=== PATIENT | male | born 1995 | race Caucasian/White ===

== ENCOUNTER 2019-01-22 13:01 | Emergency (ER) | payer OTHER ==
[2019-01-22] MEDS ORDERED: NS 0.9% 1000 ML** 1,000 ML IV ONE (13:32)
[2019-01-22] MEDS ORDERED: Ondansetron INJ* 2 MG/ML VIAL IV ONE (13:32)
--- NOTE | 2019-01-22 14:38 | UC ---
Nausea/Vomiting/Diarrhea HPI - HPI Summary HPI Summary: Pt has been vomiting over the past 1-2 days which he attributes to smoking marijuan. He states he also used cocaine in the past 2 1/2 weeks and again one week ago. In the past, when he smoked marijuana, he would always develop excessive vomiting. He was seen in the [facility] twice yesterday but he states "They didn't do anything..gave me some fluids and nausea medicine and ativan which did nothing." - History of Current Complaint Chief Complaint: UCGeneralIllness Stated Complaint: VOMITING Time Seen by Provider: 01/22/19 13:24 Hx Obtained From: Patient Onset/Duration: Sudden Onset - After smoking marijuana Timing: Intermittent Episodes Lasting: - a few minutes Severity Initially: Moderate Severity Currently: Mild Pain Intensity: 8 Location: Diffuse - Diffuse abdominal soreness mostly from vomiting. Character: Dull Aggravating Factor(s): Other: - Vomiting Nausea/Vomiting Presence: Nauseated, Vomiting - Pt states he has vomitied 10 times in the past 24 hours. Nausea/Vomiting Duration: 12-24 hours Vomiting Characteristics: Retching Diarrhea Presence: No - Risk Factors Influenza Risk Factors: Negative Surgical Obstruction Risk Factor(s): Negative - Allergies/Home Medications Allergies/Adverse Reactions: Allergies Allergy/AdvReac Type Severity Reaction Status Date / Time No Known Allergies Allergy Verified 01/23/19 12:44 PMH/Surg Hx/FS Hx/Imm Hx Previously Healthy: Yes Psychological History: Anxiety - Surgical History Surgical History: Yes Surgery Procedure, Year, and Place: Left Shoulder Labrum Repair - Family History Known Family History: Positive: None - Social History Occupation: Student Lives: Dormitory/Roommates Alcohol Use: Weekly Substance Use Type: Cocaine, Marijuana Substance Use Comment - Amount & Last Used: Marijuana "every other day"; Cocaine "once a week maybe" Smoking Status (MU): Never Smoked Tobacco Review of Systems All Other Systems Reviewed And Are Negative: Yes Constitutional: Positive: Negative Skin: Positive: Negative Eyes: Positive: Negative ENT: Positive: Negative Respiratory: Positive: Negative Cardiovascular: Positive: Negative Gastrointestinal: Positive: Vomiting - Vomited 10 times in the past 24 hours, Abdominal discomfort associated with vomiting. No specific point tenderness, Nausea Genitourinary: Positive: Negative Motor: Positive: Negative Neurovascular: Positive: Negative Musculoskeletal: Positive: Negative Neurological: Positive: Negative Psychological: Positive: Negative Is Patient Immunocompromised?: No Physical Exam Triage Information Reviewed: Yes Appearance: Well-Appearing, No Pain Distress, Well-Nourished, Other: - Pacing in room with mild anxiety due to vomiting. Vital Signs: Initial Vital Signs Temp 98.9 F 01/22/19 13:11 Pulse 85 01/22/19 13:11 Resp 18 01/22/19 13:11 BP 160/95 01/22/19 13:11 Pulse Ox 100 01/22/19 13:11 Vital Signs Reviewed: Yes Eye Exam: Normal ENT Exam: Normal Neck exam: Normal Respiratory Exam: Normal Cardiovascular Exam: Normal Abdominal Exam: Normal Abdomen Description: Positive: Nontender - No specific point tenderness., No Organomegaly, Soft. Negative: Distended, Guarding, Hepatomegaly, Splenomegaly Bowel Sounds: Positive: Present Musculoskeletal Exam: Normal Neurological Exam: Normal Psychological Exam: Normal Skin Exam: Normal Re-Evaluation - Re-Evaluation First Eval Re-Evaluation Time: 15:25 Change: Improved - Pt feeling much better and has not had any more vomiting while here. His abdomen remians soft and non-tender on palpation. Naus/Vom/Diarrhea Course/Dx - Course Course Of Treatment: One liter of Normal Saline given via IV, Zofran 4 mg IV, Resting here and feeling better. - Differential Dx/Diagnosis Differential Diagnoses - Male: Vomiting Provider Diagnosis: Vomiting Is Visit Related: No Condition At Discharge: Good - Physician Notification/Consults Discussed Case/Management/Disposition Of Patient With: Natan Crockett Time Discussed With Above Provider: 13:30 Instructed by Provider To: Other - IV fluids, Zofran Discharge - Sign-Out/Discharge Documenting (check all that apply): Patient Departure All imaging exams completed and their final reports reviewed: No Studies - Discharge Plan Condition: Good Disposition: HOME Patient Education Materials: Acute Nausea and Vomiting (ED) Forms: *School Release Referrals: No Primary Care Phys,NOPCP [Primary Care Provider] - Additional Instructions: Liquids today and then gradually increase to regular diet. Crackers, gingerale, soup. Stop smoking marijuana and stop using any other drugs. Follow up in the ER if symptoms worsen. - Billing Disposition and Condition Condition: GOOD Disposition: Home - Attestation Statements Provider Attestation: Per institutional requirements, I have reviewed the chart, however, I was not consulted specifically or made aware of this patient by the midlevel provider. I did not personally evaluate, interact with , or disposition this patient.
[2019-01-22 15:15] VITALS: BP 134/72
== END 2019-01-22 15:42 | disposition home or self-care (01) ==
LOC: UCCORT 13:01
DX: R11.2 Nausea with vomiting, unspecified (principal); R19.8 Other specified symptoms and signs involving the digestive system and abdomen
CPT/HCPCS: 96361; 96374; 99212; G0463; J2405

== ENCOUNTER 2019-01-23 12:40 | Emergency (ER) | payer OTHER ==
[2019-01-23 12:50] VITALS: BP 132/88
--- NOTE | 2019-01-23 13:02 | UC ---
Abdominal Pain Male HPI - HPI Summary HPI Summary: nausea and vomiting x 3 days has been smoking cannabis and causing him to have severe vomiting + abdominal pain , no diarrhea pt. has been seen at the urgent care and ED for the past 2 days was given fluid, and zofran , getting worse again today no fever - History of Current Complaint Chief Complaint: UCGeneralIllness Stated Complaint: DIZZINESS,VOMITTING Time Seen by Provider: 01/23/19 12:43 Hx Obtained From: Patient Onset/Duration: Gradual Onset, Lasting Days - 3, Still Present Timing: Constant Severity Initially: Severe Severity Currently: Severe Pain Intensity: 8 Location: Diffuse Radiates: No Character: Cramping Aggravating Factor(s): Food, Other - cannibis Alleviating Factor(s): Nothing Associated Signs And Symptoms: Positive: Decreased Appetite, Nausea, Vomiting. Negative: Fever, Diarrhea - Allergies/Home Medications Allergies/Adverse Reactions: Allergies Allergy/AdvReac Type Severity Reaction Status Date / Time No Known Allergies Allergy Verified 01/23/19 12:44 Home Medications: Home Medications Promethazine TAB* [Phenergan TAB*] 25 mg PO Q6H PRN 01/23/19 [History Confirmed 01/23/19] PMH/Surg Hx/FS Hx/Imm Hx Previously Healthy: Yes - Surgical History Surgical History: Yes Surgery Procedure, Year, and Place: Left Shoulder Labrum Repair - Family History Known Family History: Positive: None Negative: Diabetes - Social History Alcohol Use: Weekly Substance Use Type: Cocaine, Marijuana Substance Use Comment - Amount & Last Used: Marijuana "every other day"; Cocaine "once a week maybe" Smoking Status (MU): Never Smoked Tobacco Review of Systems All Other Systems Reviewed And Are Negative: Yes Constitutional: Positive: Negative Skin: Positive: Negative Eyes: Positive: Negative ENT: Positive: Negative Respiratory: Positive: Negative Gastrointestinal: Positive: Abdominal Pain, Vomiting, Nausea Genitourinary: Positive: Negative Is Patient Immunocompromised?: No Physical Exam Triage Information Reviewed: Yes Appearance: Well-Nourished, Pain Distress Vital Signs: Initial Vital Signs Temp 97.8 F 01/23/19 12:43 Pulse 117 01/23/19 12:43 Resp 28 01/23/19 12:43 BP 132/88 01/23/19 12:43 Pulse Ox 100 01/23/19 12:43 Vital Signs Reviewed: Yes Eye Exam: Normal Eyes: Positive: Conjunctiva Clear ENT: Positive: Normal ENT inspection, Hearing grossly normal, Pharynx normal Neck: Positive: Supple, Nontender, No Lymphadenopathy Respiratory: Positive: Chest non-tender, Lungs clear, Normal breath sounds Cardiovascular: Positive: No Murmur, Tachycardia Abdomen Description: Positive: Soft, Other: - diffuse tenderness. Negative: Distended, Guarding Bowel Sounds: Positive: Present Skin Exam: Normal Abd Pain Male Course/Dx - Differential Dx/Clinical Impression Provider Diagnosis: Cannabis hyperemesis syndrome concurrent with and due to cannabis abuse Discharge - Sign-Out/Discharge Documenting (check all that apply): Patient Departure All imaging exams completed and their final reports reviewed: No Studies - Discharge Plan Condition: Fair Disposition: TRANS HIGHER LVL OF CARE FAC Patient Education Materials: Acute Nausea and Vomiting (ED) Referrals: No Primary Care Phys,NOPCP [Primary Care Provider] - Additional Instructions: will have the pt. go to [facility] for evaluation and tx pt. left without signing discharge paper work , - Billing Disposition and Condition Condition: FAIR Disposition: Trans Higher Lvl of Care Fac
== END 2019-01-23 12:55 | disposition short-term general hospital (02) ==
LOC: UCCORT 12:40
DX: F12.188 Cannabis abuse with other cannabis-induced disorder (principal); R11.2 Nausea with vomiting, unspecified; R10.9 Unspecified abdominal pain
CPT/HCPCS: 99212; G0463

== ENCOUNTER 2019-01-25 12:25 | Emergency (ER) | payer OTHER ==
[2019-01-25] MEDS ORDERED: Ondansetron ODT TAB* 4 MG PO ONE (12:28)
--- NOTE | 2019-01-25 12:33 | UC ---
UC General HPI - HPI Summary HPI Summary: patient is here complaining of a panic attack. has a long history of cannaboid use, has hyper emesis realted to the use. went months without smoking pot and has not had any episodes until he started smoking again 2 weeks ago. started last night, vomiting, presents shaking and anxious. did take his 20 mg adderall this morning. - History of Current Complaint Stated Complaint: PANIC Time Seen by Provider: 01/25/19 12:28 Hx Obtained From: Patient Onset/Duration: Sudden Onset, Lasting Hours Timing: Constant Onset Severity: Moderate Current Severity: Severe Associated Signs & Symptoms: Positive: Abdominal Pain, Headache, Vomiting - Allergy/Home Medications Allergies/Adverse Reactions: Allergies Allergy/AdvReac Type Severity Reaction Status Date / Time No Known Allergies Allergy Verified 01/25/19 12:37 Home Medications: Home Medications Dextroamphetamine/Amphetamine [Adderall 20 mg Tablet] 1 tab PO ONCE 01/25/19 [ History Confirmed 01/25/19] Promethazine TAB* [Phenergan TAB*] 25 mg PO Q6H PRN 01/25/19 [History Confirmed 01/25/19] PMH/Surg Hx/FS Hx/Imm Hx Previously Healthy: Yes Other Psychological History: cannaboid hyperemesis syndrome - Surgical History Surgical History: Yes Surgery Procedure, Year, and Place: Left Shoulder Labrum Repair - Family History Known Family History: Positive: None Negative: Diabetes - Social History Alcohol Use: Weekly Substance Use Type: Cocaine, Marijuana, Other - amphetimines Substance Use Comment - Amount & Last Used: Marijuana "every other day"; Cocaine "once a week maybe" Smoking Status (MU): Never Smoked Tobacco Review of Systems All Other Systems Reviewed And Are Negative: Yes Constitutional: Positive: Chills Skin: Positive: Negative Eyes: Positive: Negative ENT: Positive: Negative Respiratory: Positive: Negative Cardiovascular: Positive: Negative Gastrointestinal: Positive: Vomiting, Nausea Genitourinary: Positive: Negative Motor: Positive: Negative Neurovascular: Positive: Negative Musculoskeletal: Positive: Negative Neurological: Positive: Negative Is Patient Immunocompromised?: No Physical Exam Triage Information Reviewed: Yes Appearance: Well-Nourished, Ill-Appearing, Pain Distress Vital Signs Reviewed: Yes ENT Exam: Normal ENT: Positive: Pharynx normal, TMs normal Dental Exam: Normal Neck exam: Normal Neck: Positive: Supple, Nontender, No Lymphadenopathy Respiratory Exam: Normal Respiratory: Positive: Chest non-tender, Lungs clear, Normal breath sounds Cardiovascular Exam: Normal Cardiovascular: Positive: RRR, No Murmur, Pulses Normal Abdomen Description: Positive: No Organomegaly, Soft, CVA Tenderness (R) - neg, CVA Tenderness (L) - neg, Other: - epigastric tednerness with palpation Bowel Sounds: Positive: Present Musculoskeletal Exam: Normal Skin Exam: Normal Re-Evaluation - Re-Evaluation First Eval Re-Evaluation Time: 14:11 Change: Improved - patient is coalm, vomiting has subsided. he is able to carry on a conversation. vital signs remain stable. Course/Dx - Course Course Of Treatment: hx obtained,exam performed ,meds reviewed, zofran was given. patient continued to vomit, patient is continually pacing, feels "all hyped up" vital signs remain stable. peripheral IV inserted and given iv zofran , and ativan. patients roomate here to drive him home. zofran prescribed for home - Differential Dx - Multi-Symptom Differential Diagnoses: Other - anxiety medication abuse vomiting cannoboid hyperemesis - Diagnoses Provider Diagnosis: Amphetamine adverse reaction, Vomiting Discharge - Sign-Out/Discharge Documenting (check all that apply): Patient Departure All imaging exams completed and their final reports reviewed: No Studies - Discharge Plan Condition: Stable Disposition: HOME Patient Education Materials: Adverse Drug Reaction (ED) Referrals: No Primary Care Phys,NOPCP [Primary Care Provider] - Additional Instructions: 1. go home and get plenty of rest 2. eat as tolerated 3. Continue to take in plenty of fluid. 4. take the prescribed medication as needed. 5. Stop taking other peoples medication. follow up with your medical provider if you feel you need something to help you focus. - Billing Disposition and Condition Condition: STABLE Disposition: Home
[2019-01-25] MEDS ORDERED: Ondansetron INJ* 2 MG/ML VIAL IV ONE (12:58)
[2019-01-25] MEDS ORDERED: LORazepam INJ* 2 MG/ML 1 ML VIAL IV PUSH ONE (12:58)
[2019-01-25] MEDS ORDERED: NS 0.9% 1000 ML** 1,000 ML IV ONE (12:58)
[2019-01-25 13:39] VITALS: BP 155/83
== END 2019-01-25 14:37 | disposition home or self-care (01) ==
LOC: UCCORT 12:25
DX: R11.2 Nausea with vomiting, unspecified (principal); T43.625A Adverse effect of amphetamines, initial encounter; R51 Headache; R10.9 Unspecified abdominal pain; F12.90 Cannabis use, unspecified, uncomplicated; Y92.9 Unspecified place or not applicable
CPT/HCPCS: 96361; 96374; 96375; 99212; A9270-GY; G0463; J2060; J2405